=== PATIENT | female | born 1940 | race Caucasian/White ===

== ENCOUNTER 2020-09-22 14:56 | Outpatient (CLI) | payer MEDICARE, SELFPAY | END 2020-09-22 14:57 | disposition home or self-care (01) | LOC: ANHCOVIDVC 14:56 | PROVIDERS: PCP Internal Medicine | DX: Z23 Encounter for immunization (principal) | CPT/HCPCS: 0001A; 91300 ==

== ENCOUNTER 2020-10-13 14:54 | Outpatient (CLI) | payer MEDICARE, SELFPAY | END 2020-10-13 14:55 | disposition home or self-care (01) | LOC: ANHCOVIDVC 14:54 | PROVIDERS: PCP Internal Medicine | DX: Z23 Encounter for immunization (principal) | CPT/HCPCS: 0002A; 91300 ==